=== PATIENT | female | born 1935 | race Caucasian/White ===

== ENCOUNTER 2019-07-29 09:19 | Inpatient (IN) | payer MEDICARE ==
[2019-07-29] MEDS ORDERED: Lorazepam 2 MG/ML VIAL ONE (09:57)
[2019-07-29 10:14] LABS: Bacteria/HPF None Seen HPF (None Seen); Bilirubin Negative (Negative); Blood, Urine 1+ (Negative); Clarity Clear (Clear); Glucose, Urine (Dipstick) Normal (Negative); Leukocyte Negative Leu/uL (Negative); Nitrite Negative (Negative); Protein, Urine (Dipstick) 20 mg/dL (Neg-Trace); Squamous Epithelial 0-3 HPF (0-3); Urobilinogen Normal mg/dL (Less than 2); WBC/HPF 0-3 HPF (0-3)
[2019-07-29 10:23] LABS: %Lymphocytes 27.3 % (21.0-51.0); %Neutrophils 67.2 % (42.0-75.0); Hemoglobin 13.5 g/dL (12.0-16.0); Manual Diff?? NO; Mean Corpuscular HGB CONC 31.9 g/dL (32.0-36.0); Mean Corpuscular Hemoglobin 28.8 pg (27.0-31.0); Mean Corpuscular Volume 90.2 fL (78.0-98.0); Mean Platelet Volume 7.6 fL (7.4-10.4); Platelet Count 195 thou/uL (130-400); RBC Distribution Width 13.6 % (11.5-14.5); Red Blood Cell (RBC) Count 4.69 mill/uL (4.20-5.40); White Blood Cell (WBC) Count 13.1 thou/uL (4.8-10.8)
[2019-07-29] MEDS ORDERED: Magnesium 2 GM/50 ML BAG (IN WATER) ONE (10:23)
[2019-07-29 10:24] LABS: #Basophils 0.1 thou/uL (0.0-0.2); #Eosinphils 0.1 thou/uL (0.0-0.7); #Lymphocytes 3.6 thou/uL (1.20-3.40); #Monocytes 0.5 thou/uL (0.11-0.59); #Neutrophils 8.8 thou/uL (1.40-6.50); %Basophils 0.6 % (0.0-1.0); %Eosinophils 0.7 % (0.0-10.0); %Monocytes 4.2 % (0.0-10.0)
--- NOTE | 2019-07-29 10:26 | RAD ---
PORTABLE CHEST: Date: 07/29/19 HISTORY: Irregular heart rate, altered mental status. COMPARISON: 12/15/15 exam. FINDINGS: Heart size is enlarged. There are postop sternotomy changes. Pleural based plaques are again demonstr ated, suggesting previous asbestosis exposure. No interval change since the prior exam. IMPRESSION: Calcified pleural plaques compatible with prior asbestosis exposure. No acute process identified. POS: [facility]
[2019-07-29 10:34] LABS: Globulin 2.7 g/dL (2.4-3.5); Glucose 113 mg/dL (83-110); INR-International Normal Ratio 2.5; PTT 37.6 SEC (22.9-36.1); Protein, Total 7.3 g/dL (6.0-8.3); Prothrombin Time 26.5 SEC (12.0-14.7)
[2019-07-29 10:35] LABS: Anion Gap 16 mmol/L (10-20); Carbon Dioxide 19 mmol/L (23-31)
[2019-07-29 10:36] LABS: Bilirubin, Total 0.4 mg/dL (0.2-1.2)
[2019-07-29 10:38] LABS: Amphetamine Not Detected (NotDetected); Barbiturates Screen Not Detected (NotDetected); Benzodiazepine Screen Not Detected (NotDetected); Cocaine Metabolite Screen Not Detected (NotDetected); Medtox Control Line Valid? VALID (VALID); Medtox Reader # READER 4; Methadone Not Detected (NotDetected); Methamphetamine Not Detected (NotDetected); Opiate Screen Not Detected (NotDetected); Oxycodone Screen Not Detected (NotDetected); Phencyclidine (PCP) Not Detected (NotDetected); THC/Cannabinoid Screen Not Detected (NotDetected); Tricyclic Screen Not Detected (NotDetected)
[2019-07-29 10:49] LABS: ALT (SGPT) 12 U/L (8-55); AST (SGOT) 15 U/L (5-34); Alkaline Phosphatase 90 U/L (40-110); BUN (Urea Nitrogen) 21 mg/dL (9.8-20.1); CK (CPK) 43 U/L (29-168); Calc. Creatinine Clearance 0 mL/min (70-130); Estimated GFR-MDRD 66; Lipase 30 U/L (8-78)
[2019-07-29 10:53] LABS: Albumin 4.6 g/dL (3.4-4.8)
[2019-07-29 10:55] LABS: Chloride 109 mmol/L (98-107); Potassium 4.2 mmol/L (3.5-5.1); Sodium 139 mmol/L (136-145)
[2019-07-29 10:56] LABS: Alcohol Less than 10 mg/dL (Less than 10); Calcium 8.9 mg/dL (7.8-10.44)
[2019-07-29 10:59] LABS: Acetaminophen Less than 6.0 mcg/mL (10.0-30.0); Salicylate Less than 8.0 mg/dL (15.0-30.0)
[2019-07-29 11:17] LABS: Digoxin 0.92 ng/mL (0.8-2.0)
--- NOTE | 2019-07-29 12:00 | CT ---
CT OF THE BRAIN WITHOUT CONTRAST: Date: 07/29/19 COMPARISON: 03/07/16. HISTORY: Altered mental status. TECHNIQUE: Multiple contiguous axial images were obtained in a CT of the brain without contrast. FINDINGS: There is stable enlargement of the occipital horn of the left lateral ventricles consistent with ex v acuo dilatation of the ventricle secondary to remote left-sided infarction. There are scattered hypod ensities in the subcortical and periventricular white matter, likely secondary to small vessel ischem ic disease. No new confluent infarction is seen. There is no evidence of hydrocephalus, intracranial hemorrhage, or extra-axial fluid collections. The calvarium and overlying soft tissues are unremarkable. The visualized paranasal sinuses and masto id air cells are well aerated. IMPRESSION: No evidence of acute intracranial abnormality. POS: [facility]
[2019-07-29] MEDS ORDERED: hydrALAZINE 20 MG/ML VIAL SLOW IVP PRN (13:56)
[2019-07-29 15:07] LABS: Lactic Acid 1.9 mmol/L (0.5-2.2)
--- NOTE | 2019-07-29 15:32 | HP ---
CHIEF COMPLAINT: Altered mental status. HISTORY OF PRESENT ILLNESS: This patient is an 84-year-old female with a history of prior seizure disorder and followed by Dr. Ramos. She also has a history of chronic atrial fibrillation, followed by Dr. Palomares and her primary care provider is Dr. Roldan. The patient apparently lives at [place] in an independent living apartment, where she cares for herself and does quite well. Family reports her normal cognition is fairly normal. They have a general routine with the patient by which she calls them in the morning when she wakes to let them know she is okay and then again in the evening on this particular morning the patient called but was significantly earlier than she normally does. The patient's daughter then tried to call her back to talk to her about something unrelated and the patient did not respond to the phone call. She neither answered nor called her back. Therefore, they went to check on her when they arrived, the patient was sitting in a chair, looking about the room, but was altered, not interactive. Therefore, an ambulance was called and the patient was brought to the emergency department. In the emergency department, the patient's workup was concerning for possible pneumonia with abnormalities on chest x-ray and she was started on antibiotics with vancomycin and Levaquin. She subsequently had a seizure and received Ativan and is currently somewhat sedated and unable to give any additional history and the history is obtained from the patient's family in the medical record. The patient also was noted to have elevated blood pressures. It was reported to me that her blood pressure was systolic of 231, although it is not documented that high on the ER record that I can see. She did receive a dose of diltiazem because of her underlying AFib and heart rate in the 130s along with that elevated blood pressure. Her blood pressure has improved somewhat, although is still running high. The patient's family reports that she has had a seizure in the past or related to infection, but does not have seizures, otherwise. REVIEW OF SYSTEMS: The patient is unable to specifically give any review of systems because of the sedation. The family reports that the patient does not have any history of aspiration. She has not had any significant coughing until she got here today and they report no history of dysphagia. The patient had not reported any other problems to them prior to this episode. PAST MEDICAL HISTORY: Notable for atrial fibrillation, hypothyroidism, hyperlipidemia, coronary artery disease, hypertension, prior CVA for which she had initially some right hemiplegia that had resolved with the exception of some persistent neuropathy and her right upper extremity manifest as a cold sensation and tingling sensation. She also has some history of depression. PAST SURGICAL HISTORY: Coronary artery bypass graft x5, appendectomy. SOCIAL HISTORY: The patient is a nonsmoker, nondrinker, nondrug user. She did apparently drink fairly heavily until about 15 to 20 years ago. She is a . She is DNAR. Her son, daughter, and granddaughter are present and they are her surrogate decision makers. CURRENT MEDICATIONS: Not fully elucidated, however, it appears as though from the old list that she is on; 1. Warfarin 3 mg daily. 2. Topiramate 100 mg b.i.d. 3. Zoloft 50 mg daily. 4. Zestril 20 mg b.i.d. 5. Levothyroxine 75 mcg daily. 6. Digoxin 0.125 p.o. daily. 7. Coreg 3.125 one p.o. b.i.d. 8. Atorvastatin 10 mg daily. 9. Aspirin 81 mg daily. 10. CoQ10 of 200 mg daily. 11. Lasix 20 mg daily. 12. Folic acid 1 mg daily. 13. Donepezil 10 mg at bedtime. 14. B12 of 1000 mcg p.o. daily. Again, this list is preliminary. PHYSICAL EXAMINATION: VITAL SIGNS: Blood pressure was 180s/90s; pulse 110, irregular; respirations are 16; and she is afebrile. GENERAL APPEARANCE: The patient is sedated. She is sleeping comfortably. She is in no distress. She does not wake up significantly to the exam, but at some point, she does tend to yarn and stretch, moving her extremities spontaneously with fairly volitional activity. HEENT: Pupils are sluggish. She will resist opening her mouth for OP exam. NECK: Supple and symmetric. HEART: Irregular without murmurs. LUNGS: Notable for some minimal scattered rales, but again she is not cooperating with deep breathing. ABDOMEN: Soft and nondistended. Normal bowel sounds. No masses. No organomegaly. EXTREMITIES: Have no cyanosis, clubbing, or edema. NEUROLOGICAL: Again, the patient was able to move all of her extremities. Cannot otherwise test cranial nerves or strength. PSYCH: The patient is sedated. LABORATORY DATA: White count 13.1, hemoglobin 13.5, and platelets 195. INR 2.5, PTT 37.6. Sodium 139, potassium 4.2, chloride 109, CO2 of 19, BUN 21, creatinine is 0.82, glucose 113, lactic acid 2.3, calcium 8.9, AST 15, ALT 12, ammonia is 35. Troponin less than 0.01. Albumin 4.6. TSH 2.78. Urinalysis; 1+ blood, 11 to 20 red cells, 0 to 3 white cells, no bacteria. Urine drug screen; dig level is 0.92, otherwise negative. Flu screen is negative. IMAGING DATA: CT of the brain shows no evidence of acute intracranial processes. Chest x-ray shows calcified pleural plaques compatible with prior asbestos exposure. No acute processes identified. Chest x-ray shows similar findings on the exam from 2013. Monitor shows atrial fibrillation. IMPRESSION AND PLAN: 1. Acute encephalopathy, etiology is unclear. It could be hypertensive urgency. Family reports that she typically runs much better blood pressure. However, the spike in blood pressure is also concerning for the possibility of acute cerebrovascular accident in a patient with a history of risk factors and a prior cerebrovascular accident. We will try to obtain urgent MRI to help us delineate how we should approach the blood pressure. The patient is therapeutic on warfarin. She is already on statin and aspirin. We will try to continue those. It is also possible that she had a seizure and it was postictal, although it seems to be out of character. For her typical seizure disorder, we will go ahead and consult Neurology. She says she follows with Dr. Ramos already. She did receive Ativan in the ER, has not been loaded with Keppra. She takes topiramate for seizures on a regular basis and we will try to continue with that. 2. Hypertensive urgency, as above, tolerating some hypertension, so we can rule out acute cerebrovascular accident. 3. History of seizure disorder with seizure active today, status post Ativan again. Continue topiramate. Consult Neurology. 4. Possible pneumonia. The patient has not been having any cough, but she is having some here today. Since arrival, it is unclear if maybe she aspirated. We will cover with Zosyn and vancomycin. Her chest x-ray appears to show chronic findings that are largely unchanged from 2014, which certainly could be masking some infiltrates. We will therefore continue to cover with antibiotics appropriately. 5. Hypothyroidism. Continue with her normal levothyroxine dose. 6. Chronic atrial fibrillation. Continue with her warfarin and digoxin. We will continue to monitor heart rate and add chronotropic agents if necessary. We will also continue with the Coreg. 7. Hyperlipidemia. Continue atorvastatin. 8. History of depression. Continue with the Zoloft. 9. Chronic hypertension. Resume Zestril and Coreg. 10. History of coronary artery disease. Continue aspirin and carvedilol. Her initial troponin was less than 0.01. We will continue to monitor those as well. Job ID: [id number]
--- NOTE | 2019-07-29 16:39 | MRI ---
MRI Brain WO Con HISTORY: Altered mental status. Previous CVA. COMPARISON: 12/16/2015 study. FINDINGS: There is motion artifact on this exam. There is generalized ventricular and sulcal prominen ce. There is prominent T2 and FLAIR signal hyperintensities seen within the white matter. There is ex vacuo dilatation of the left temporal horn. This is a stable finding. No signs of any acute infarc t. No extra-axial fluid collections. The pituitary is normal in appearance. Old appearing left occipital infarct incidentally seen. IMPRESSION: No acute intracranial abnormalities.
[2019-07-29] MEDS: Piperacillin/Tazobactam 3.375 GM in Sodium Chloride 0.9% 100 ML IVPB SCH ×2 (20:41→21:10)
[2019-07-29 20:43] VITALS: BMI 26.6
[2019-07-29] MEDS: Famotidine/PF 20 mg/2ml Vial SLOW IVP SCH (21:09)
[2019-07-29] MEDS: Topiramate 100 MG TAB PO SCH (21:09)
[2019-07-29] MEDS: Lisinopril 20 MG TAB PO SCH (21:10)
[2019-07-29] MEDS: Carvedilol 3.125 MG TAB PO SCH (21:11)
[2019-07-29] MEDS: Warfarin Sodium 3 MG TAB PO SCH (21:12)
[2019-07-30] MEDS: Piperacillin/Tazobactam 3.375 GM in Sodium Chloride 0.9% 100 ML IVPB SCH ×2 (02:01→08:13)
[2019-07-30 05:02] LABS: #Eosinphils 0.1 thou/uL (0.0-0.7); #Lymphocytes 1.5 thou/uL (1.20-3.40); #Monocytes 0.8 thou/uL (0.11-0.59); #Neutrophils 5.5 thou/uL (1.40-6.50); %Basophils 0.1 % (0.0-1.0); %Eosinophils 1.5 % (0.0-10.0); %Lymphocytes 19.4 % (21.0-51.0); %Monocytes 9.5 % (0.0-10.0); %Neutrophils 69.5 % (42.0-75.0); Hemoglobin 11.6 g/dL (12.0-16.0); Mean Corpuscular Hemoglobin 29.2 pg (27.0-31.0); Mean Corpuscular Volume 88.6 fL (78.0-98.0); Mean Platelet Volume 7.6 fL (7.4-10.4); Platelet Count 160 thou/uL (130-400); RBC Distribution Width 13.5 % (11.5-14.5); Red Blood Cell (RBC) Count 3.97 mill/uL (4.20-5.40); White Blood Cell (WBC) Count 7.9 thou/uL (4.8-10.8)
[2019-07-30 05:20] LABS: ALT (SGPT) 10 U/L (8-55); AST (SGOT) 12 U/L (5-34); Albumin 3.5 g/dL (3.4-4.8); Alkaline Phosphatase 68 U/L (40-110); Anion Gap 12 mmol/L (10-20); BUN (Urea Nitrogen) 17 mg/dL (9.8-20.1); Bilirubin, Total 0.5 mg/dL (0.2-1.2); Calc. Creatinine Clearance 56 mL/min (70-130); Calcium 8.3 mg/dL (7.8-10.44); Carbon Dioxide 20 mmol/L (23-31); Chloride 110 mmol/L (98-107); Estimated GFR-MDRD 67; Globulin 2.5 g/dL (2.4-3.5); Glucose 93 mg/dL (83-110); Potassium 3.7 mmol/L (3.5-5.1); Sodium 138 mmol/L (136-145)
[2019-07-30] MEDS: Levothyroxine Sodium 75 MCG TAB PO SCH (05:39)
[2019-07-30] MEDS: Famotidine/PF 20 mg/2ml Vial SLOW IVP SCH ×2 (08:13→20:42)
[2019-07-30] MEDS: Carvedilol 3.125 MG TAB PO SCH ×2 (08:14→16:13)
[2019-07-30] MEDS: Digoxin 0.125 MG TAB PO SCH (08:14)
[2019-07-30] MEDS: Atorvastatin Calcium 10 MG TAB PO SCH (08:14)
[2019-07-30] MEDS: Lisinopril 20 MG TAB PO SCH ×2 (08:15→20:42)
[2019-07-30] MEDS: Aspirin Chewable 81 MG TAB PO SCH (08:15)
[2019-07-30] MEDS: Topiramate 100 MG TAB PO SCH ×2 (08:56→20:42)
[2019-07-30] MEDS ORDERED: Topiramate 25 MG TAB PO SCH (10:45)
[2019-07-30] MEDS ORDERED: Vancomycin HCl 1 GM in Premix Bag 1 BAG IVPB SCH (12:00)
--- NOTE | 2019-07-30 12:31 | PRG ---
DATE OF SERVICE: 07/30/2019 SUBJECTIVE: The patient is seen and examined at the bedside. Her granddaughter is present in the room during my visit. She noticed significant improvement on the patient's mental status. She is all almost back to her normal baseline. She is responsive, and she eats good. OBJECTIVE: VITAL SIGNS: Blood pressure is 147/65, pulse 63, temperature is 97.6, maximal temperature is 98.7, respirations 16, O2 saturation is 98% on room air. HEENT: Head is atraumatic and normocephalic. Eyes are PERRLA. Sclerae are nonicteric. Oral mucosa is moist. NECK: Supple. LUNGS: Clear. HEART: S1, S2 normal. No S3. No S4, but irregularly irregular. ABDOMEN: Soft, nontender, nondistended. Bowel sounds are present. No organomegaly. EXTREMITIES: No clubbing, cyanosis, or edema. NEUROLOGIC: She follows my commands. She moves all 4 extremities. There is no any motor or sensory deficits. LABORATORY DATA: Labs showed white count of 7.9, hemoglobin 11.6, hematocrit 35.1, platelet count 116. Sodium of 138, potassium 3.7, chloride 110, CO2 of 20, BUN 17, creatinine 0.81, glucose 93. The rest of chemistry is within normal limits. Microbiology, 2 blood cultures negative. Urine culture negative. Influenza type A and B, direct EIA, final results are negative. IMPRESSION: 1. Altered mental status, almost completely resolved, almost back to normal. 2. Recurrent seizures while being in the emergency room, treated with IV Ativan. 3. Hypertensive urgency, improved. 4. History of seizures. 5. The diagnosis of pneumonia was entertained, but there is no evidence of that. Her white count is back to normal in one day. She does not have any respiratory symptoms, so I am going to stop her Zosyn and vancomycin. 6. Hypothyroidism, on replacement. 7. Chronic atrial fibrillation, rate controlled on warfarin and digoxin. 8. Hyperlipidemia. 9. History of depression. 10. History of coronary artery disease, chronic, stable. PLAN: As mentioned above, we are still waiting for neurologist to come and see her. I believe that this was most likely seizure-related altered mental status, although this happened prior to her seizures, but she could have seizures at home. I am going to stop her IV antibiotics since there is no any evidence of infection and she should be able to go back to her assisted living in the next day or two. Job ID: [id number]
[2019-07-30] MEDS: Warfarin Sodium 3 MG TAB PO SCH (16:13)
--- NOTE | 2019-07-30 20:56 | CON ---
DATE OF CONSULTATION: 07/30/2019 CONSULTING PHYSICIAN: Hospitalist Service. HISTORY OF PRESENT ILLNESS: Ms. Araya was witnessed at home to have a bizarre behavioral pattern, where she had a scanning nonverbal appearance. She was brought to the emergency room for evaluation. She had a witnessed generalized tonic-clonic seizure. Her lab work was unremarkable including a CBC and chemistry panel. Her urinalysis was clear. She has since had an MRI of the brain, which only showed some age-related changes but nothing acute. She has not had any further seizure activity. She continues to act inappropriately. Her family reports that she has done this in the past following a seizure, where it took her quite a while to get back to her normal state. She is not answering questions appropriately. She appears to be awake, but answers with the same answer "sugar." Her face appears symmetric. She is able to move independently. She could get up and go to the bathroom with some standby assistance. She otherwise has not had any unusual movements. Her Topamax dose was increased to 150 mg twice a day this morning. We will monitor overnight and possibly check another EEG tomorrow to see if she is in subclinical seizures or not, make further recommendations. Job ID: [id number]
[2019-07-31] MEDS: Levothyroxine Sodium 75 MCG TAB PO SCH (05:19)
[2019-07-31] MEDS: Lisinopril 20 MG TAB PO SCH ×2 (10:12→20:41)
[2019-07-31] MEDS: Carvedilol 3.125 MG TAB PO SCH (10:12)
[2019-07-31] MEDS: Topiramate 100 MG TAB PO SCH ×2 (10:12→20:42)
[2019-07-31] MEDS: Famotidine/PF 20 mg/2ml Vial SLOW IVP SCH ×2 (10:13→20:41)
[2019-07-31] MEDS: Digoxin 0.125 MG TAB PO SCH (10:13)
[2019-07-31] MEDS: Aspirin Chewable 81 MG TAB PO SCH (10:13)
[2019-07-31] MEDS: Atorvastatin Calcium 10 MG TAB PO SCH (10:13)
--- NOTE | 2019-07-31 16:36 | PRG ---
DATE OF SERVICE: 07/31/2019 SUBJECTIVE: The patient is seen and examined at the bedside. Her granddaughter is present in the room during my visit. She still has some confusion according to daughter, she is not at her baseline, but it is significantly better even than what it was yesterday. OBJECTIVE: VITAL SIGNS: Blood pressure is 149/89, pulse is 101, temperature is 98.6, respirations 18, O2 saturation is 95% on room air. HEENT: Head is atraumatic, normocephalic. Eyes are PERRLA. Sclerae are nonicteric. Oral mucosa is moist. NECK: Supple. LUNGS: Clear. HEART: S1, S2. Irregularly irregular. No S3. No S4. ABDOMEN: Soft, nontender, nondistended. EXTREMITIES: No clubbing, cyanosis, or edema. NEUROLOGICAL: She tries to follow my commands, but she is off most of the time. She is able to move her all 4 extremities. There are no any motor deficits. LABORATORY DATA: None. IMPRESSION: 1. Altered mental status, most likely secondary to recurrent seizures. 2. Recurrent seizures. 3. Hypertensive urgency, improved. 4. History of seizures. 5. Hypothyroidism, on replacement. 6. Chronic atrial fibrillation with heart rate up to 130s when she gets up, rate is controlled when she is in bed. She is on warfarin and digoxin. 7. Hyperlipidemia. 8. History of depression. 9. History of coronary artery disease. PLAN: We are going to increase her Coreg to 6.25 mg twice a day to control her heart rate better. Also, we are waiting for EEG results to come back regarding her seizures, she will continue her topiramate 150 mg twice a day, and most likely, she will be discharged home tomorrow. Job ID: [id number]
[2019-07-31] MEDS: Warfarin Sodium 3 MG TAB PO SCH (16:58)
[2019-07-31] MEDS: Carvedilol 6.25 MG TAB PO SCH (16:58)
[2019-08-01 05:12] LABS: INR-International Normal Ratio 2.7; Prothrombin Time 28.4 SEC (12.0-14.7)
[2019-08-01] MEDS: Levothyroxine Sodium 75 MCG TAB PO SCH (05:22)
[2019-08-01 08:55] VITALS: TEMP 97.8
--- NOTE | 2019-08-01 09:39 | CON ---
DATE OF CONSULTATION: 08/01/2019 Ms. Araya had an uneventful night. There has been no further seizure activity. Her daughter reports that she is back to her baseline cognitive function. Her dose of Topamax has been increased to 150 mg twice a day. Her EEG did not show any seizure-type activity or other abnormalities. She did appear a bit lethargic during the study, but otherwise it was unremarkable. I think she is stable for discharge and can be followed up as an outpatient. Job ID: [id number]
[2019-08-01] MEDS: Aspirin Chewable 81 MG TAB PO SCH (10:38)
[2019-08-01] MEDS: Digoxin 0.125 MG TAB PO SCH (10:38)
[2019-08-01] MEDS: Lisinopril 20 MG TAB PO SCH (10:38)
[2019-08-01 10:39] VITALS: BP 135/65
[2019-08-01] MEDS: Atorvastatin Calcium 10 MG TAB PO SCH (10:39)
[2019-08-01] MEDS: Carvedilol 6.25 MG TAB PO SCH (10:39)
[2019-08-01] MEDS: Topiramate 100 MG TAB PO SCH (10:39)
[2019-08-01] MEDS: Famotidine/PF 20 mg/2ml Vial SLOW IVP SCH (10:39)
--- NOTE | 2019-08-01 13:15 | DIS ---
DATE OF ADMISSION: 07/29/2019 DATE OF DISCHARGE: 08/01/2019 CONSULTANTS: Dr. Ramos, Neurology Service. IMPRESSION: 1. Altered mental status, most likely secondary to recurrent seizures. 2. Recurrent seizures. 3. Hypertensive urgency, resolved. 4. History of seizures. 5. Hypothyroidism, on replacement. 6. Chronic atrial fibrillation with heart rate up to 130s, on warfarin and digoxin. 7. Hyperlipidemia. 8. History of depression. 9. History of coronary artery disease, chronic, stable. HOSPITAL COURSE: The patient is an 84-year-old female, who lives in assisted living, who was admitted to the hospital with altered mental status. According to the family, her cognition is relatively normal. Apparently, she did not respond to the call when family member called her. After the family member arrived, the patient was sitting in the chair looking above the room and being noninteractive. Ambulance was called and the patient was brought to the emergency department. There was concern that she might have pneumonia with some mild abnormalities on the chest x-ray. She was started on antibiotic with vancomycin and Levaquin, and subsequently she had seizures and received Ativan and got admitted to the telemetry floor for further management. Her blood pressure was elevated up to 231 in the emergency room, and she received a dose of diltiazem for underlying atrial fibrillation, heart rate in the 130s, and elevated blood pressure, so this became under control, and she was admitted to the telemetry floor with DNR status. Her labs from the emergency room showed white count of 13.1, hemoglobin 13.5, platelet count 195,000. INR was 2.5. PTT 37.6. Sodium 139, potassium 4.2, chloride 109, CO2 of 19, BUN 29, creatinine 0.82, glucose was 113, lactic acid 2.3, calcium 8.9, ammonia 35. Troponin less than 0.01. TSH 2.78. Urinalysis showed 1+ blood, 11-20 red cells, 0-3 white cells, no bacteria. Urine drug screen was negative. Digoxin level was 0.92. Flu screen was negative. Imaging showed CT of the brain, no evidence of acute intracranial processes. Chest x-ray showed calcified pleural plaque compatible with prior asbestos exposure. No acute process was identified. Apparently, her chest x-ray from 2013 showed very similar findings. She was in atrial fibrillation on electrocardiogram. The dose of her topiramate she is taking at home for seizures was increased to 150 mg twice a day, and the next day, her white count was normal. She did not have any fever, and she did not show any evidence of respiratory problem. Her antibiotics were stopped. She was seen by Dr. Ramos for Neurology consultation and he agreed with the current regimen plus he ordered EEG. EEG came back not showing any seizure-type activity. Her mental condition improved significantly over next 2 days, and she did not have more seizures, and she is discharged home after she had MRI of the brain which was basically not showing any acute intracranial abnormalities. Only old generalized ventricular and sulcal prominence and prominence T2 and FLAIR signal hyperintensities seen within the white matter. The blood pressure at the time of discharge 135/65, temperature 97.8, pulse 79, respirations 18, and pulse oximetry 95% on room air. Her mental function came back to baseline. She will go home with the family. She will stay on heart healthy diet. ACTIVITIES: As tolerated. MEDICATIONS: Her medications at the time of discharge; 1. Topiramate 150 mg twice a day. 2. twice a day. 3. Warfarin 3 mg daily except for Tuesdays and when she is supposed to take 4 mg. 4. Aricept 10 mg at bedtime. 5. Vitamin B12 of 1000 mcg once a day. 6. Coenzyme Q10 of 200 mg once a day. 7. Lasix 20 mg daily. 8. Lipitor 10 mg daily. 9. Aspirin 81 mg daily. 10. Digoxin 250 mcg daily. 11. Carvedilol 3.125 mg twice a day. 12. Sertraline 150 mg daily. 13. Lisinopril 20 mg twice a day. 14. Levothyroxine sodium 75 mcg daily. FOLLOWUP: She is going to follow up with her primary care physician in [address] Ramos in the next 2-3 weeks. Job ID: [id number]
--- NOTE | 2019-08-02 16:14 | EKG ---
Test Reason : Blood Pressure : / mmHG Vent. Rate : 104 BPM Atrial Rate : 202 BPM P-R Int : 000 ms QRS Dur : 088 ms QT Int : 340 ms P-R-T Axes : 000 015 111 degrees QTc Int : 447 ms Atrial fibrillation with rapid ventricular response with premature ventricular or aberrantly conducte d complexes Low voltage QRS Abnormal ECG Confirmed by VASILE STEINER, SADE ([id number]), avid editor JAH ENCINAS ([id number]) on 08/02/2019 4:12:54 PM Referred By: Confirmed By:SADE BURNETTE MD
== END 2019-08-01 10:59 | disposition home or self-care (01) | DRG 100 ==
LOC: ERS 09:19 → 2NO 12:12
PROVIDERS: ADMIT Internal Medicine; ATTEND Internal Medicine
DX: G40.409 Other generalized epilepsy and epileptic syndromes, not intractable, without status epilepticus (principal); R40.2122 Coma scale, eyes open, to pain, at arrival to emergency department; R40.2342 Coma scale, best motor response, flexion withdrawal, at arrival to emergency department; I48.20 Chronic atrial fibrillation, unspecified; I69.351 Hemiplegia and hemiparesis following cerebral infarction affecting right dominant side; G93.40 Encephalopathy, unspecified; R40.2232 Coma scale, best verbal response, inappropriate words, at arrival to emergency department; E03.9 Hypothyroidism, unspecified; E78.5 Hyperlipidemia, unspecified; I25.10 Atherosclerotic heart disease of native coronary artery without angina pectoris; I16.0 Hypertensive urgency; F32.9 Major depressive disorder, single episode, unspecified; Z66 Do not resuscitate; Z86.73 Personal history of transient ischemic attack (TIA), and cerebral infarction without residual deficits; Z95.1 Presence of aortocoronary bypass graft; Z90.49 Acquired absence of other specified parts of digestive tract; Z79.01 Long term (current) use of anticoagulants; Z79.82 Long term (current) use of aspirin; Z79.899 Other long term (current) drug therapy
CPT/HCPCS: 36415; 70450; 70551; 71045; 80053; 80162; 80306; 80307; 81003; 81015; 82140; 82550; 83605; 83690; 84443; 84484; 85025; 85610; 85730; 87040; 87086; 87804; 93005; 95816; 95819; A4353; J1956; J2060; J2543; J3370; J3475; J3490; S0028

== ENCOUNTER 2022-09-30 17:24 | Emergency (ER) | payer MEDICARE ==
[2022-09-30 18:25] LABS: #Basophils 0.2 thou/uL (0.0-0.2); #Eosinphils 0.2 thou/uL (0.0-0.7); #Lymphocytes 1.1 thou/uL (1.20-3.40); #Monocytes 0.5 thou/uL (0.11-0.59); #Neutrophils 5.5 thou/uL (1.40-6.50); %Basophils 2.6 % (0.0-1.0); %Eosinophils 2.9 % (0.0-10.0); %Lymphocytes 14.9 % (21.0-51.0); %Monocytes 6.6 % (0.0-10.0); Mean Corpuscular HGB CONC 32.7 g/dL (32.0-36.0); Mean Corpuscular Hemoglobin 29.8 pg (27.0-31.0); Mean Platelet Volume 8.2 fL (7.4-10.4); Platelet Count 143 10x3/uL (130-400); Red Blood Cell (RBC) Count 4.02 mill/uL (4.20-5.40); White Blood Cell (WBC) Count 7.5 10x3/uL (4.8-10.8)
[2022-09-30 18:37] LABS: INR-International Normal Ratio 2.4; PTT 32.4 sec (22.9-36.1)
[2022-09-30 18:45] LABS: ALT (SGPT) 18 U/L (8-55); AST (SGOT) 18 U/L (5-34); Alkaline Phosphatase 74 U/L (40-110); Anion Gap 13 mmol/L (10-20); BUN (Urea Nitrogen) 29 mg/dL (9.8-20.1); Bilirubin, Total 0.2 mg/dL (0.2-1.2); Calc. Creatinine Clearance 0 mL/min (70-130); Calcium 9.1 mg/dL (7.8-10.44); Carbon Dioxide 20 mmol/L (23-31); Chloride 112 mmol/L (98-107); Estimated GFR 60; Globulin 3.1 g/dL (2.4-3.5); Glucose 120 mg/dL (83-110); Potassium 4.1 mmol/L (3.5-5.1); Protein, Total 7.1 g/dL (5.8-8.1); Sodium 141 mmol/L (136-145)
[2022-09-30] MEDS ORDERED: Lidocaine 1% w/Epinephrine 1:100K 20 ML VIAL ONE (19:22)
== END 2022-09-30 20:27 | disposition home or self-care (01) ==
LOC: ERS 17:24
DX: S51.011A Laceration without foreign body of right elbow, initial encounter (principal); S00.01XA Abrasion of scalp, initial encounter; E03.9 Hypothyroidism, unspecified; E78.00 Pure hypercholesterolemia, unspecified; I25.10 Atherosclerotic heart disease of native coronary artery without angina pectoris; I10 Essential (primary) hypertension; Z79.899 Other long term (current) drug therapy; Z79.82 Long term (current) use of aspirin; W22.8XXA Striking against or struck by other objects, initial encounter
CPT/HCPCS: 12002; 36415; 70450; 72125; 80053; 85025; 85610; 85730